=== PATIENT | female | born 1980 | race Caucasian/White ===

== ENCOUNTER 2018-03-19 17:05 | Emergency (ER) | payer OTHER ==
[~2018-03-19] VITALS: Ht 167.6 cm; Wt 72.7 kg
[~2018-03-19 17:05] MED LIST: ALBUTEROL0.09 MG/A1 IH; BENADRYL; FLEXERIL10 MG PO; NO HOME MEDICATIONS; PREDNISONE20 MG PO
[2018-03-19 17:14] VITALS: BP 115/71; TEMP 98.7
[2018-03-19] MEDS ORDERED: FLEXERIL 1010 MG/TAB PO (18:30)
[2018-03-19 18:38] VITALS: PULSE 65
== END 2018-03-19 18:38 | disposition home or self-care (01) ==
LOC: COL.ER 17:05
DX: S16.1XXA Strain of muscle, fascia and tendon at neck level, initial encounter (principal); Z98.51 Tubal ligation status; Z90.89 Acquired absence of other organs; J45.909 Unspecified asthma, uncomplicated; V43.52XA Car driver injured in collision with other type car in traffic accident, initial encounter
CPT/HCPCS: J2360

== ENCOUNTER 2018-05-30 13:30 | Outpatient (RCR) | payer OTHER ==
[~2018-05-30 13:30] MED LIST changes: +FLEXERIL 1010 MG/TAB PO
== END 2018-06-14 12:27 | disposition home or self-care (01) ==
LOC: WSPT 13:30
DX: S16.1XXD Strain of muscle, fascia and tendon at neck level, subsequent encounter (principal); V49.9XXD Car occupant (driver) (passenger) injured in unspecified traffic accident, subsequent encounter